=== PATIENT | female | born 1975 | race Caucasian/White ===

== ENCOUNTER 2018-09-21 10:08 | Day surgery (SDC) | payer BC ==
[~2018-09-21 10:08] MED LIST: Ketorolac 30 MG/ML SDV ONE; Midazolam 1 MG/ML 2 ML SDV ONE; Ondansetron 4 MG/2 ML SDV ONE; Propofol 200 MG/20 ML SDV ONE; Rocuronium 50 MG/5 ML Vial ONE; ceFAZolin 1 GM Vial ONE; fentaNYL 100 MCG/2 ML SDV ONE
--- NOTE | 2018-09-21 10:27 | PCM.PREANE ---
Preanesthetic Assessment - Anesthesia/Transfusion/Family Hx Anesthesia History: Prior Anesthesia Without Reaction Family History of Anesthesia Reaction: No Transfusion History: Prior Transfusion Without Reaction Intubation History: Unknown - Review of Systems General: No Symptoms Pulmonary: No Symptoms Cardiovascular: No Symptoms Gastrointestinal: No Symptoms Neurological: No Symptoms Other: Reports: None - Physical Assessment NPO Status Date: 09/20/18 NPO Status Time: 10:00 Height: 1.7 m Weight: 81.647 kg ASA Class: 2 Mental Status: Alert & Oriented x3 Airway Class: Mallampati = 1 Dentition: Reports: Normal Dentition ROM/Head Extension: Full Lungs: Clear to Auscultation, Normal Respiratory Effort Cardiovascular: Regular Rate, Regular Rhythm, No Murmurs - Lab Values: Laboratory Last Values WBC 7.88 K/mm3 (3.98-10.04) 09/16/18 13:51 RBC 4.60 M/mm3 (3.98-5.22) 09/16/18 13:51 Hgb 12.6 gm/L (11.2-15.7) 09/16/18 13:51 Hct 39.1 % (34.1-44.9) 09/16/18 13:51 MCV 85.0 fl (79.4-94.8) 09/16/18 13:51 MCH 27.4 pg (25.6-32.2) 09/16/18 13:51 MCHC 32.2 g/dl (32.2-35.5) 09/16/18 13:51 RDW Std Deviation 42.7 fL (36.4-46.3) 09/16/18 13:51 Plt Count 298 K/mm3 (182-369) 09/16/18 13:51 MPV 9.3 fl (9.4-12.3) L 09/16/18 13:51 Neut % (Auto) 60.2 % (34.0-71.1) 09/16/18 13:51 Lymph % (Auto) 29.9 % (19.3-51.7) 09/16/18 13:51 [place] % (Auto) 7.9 % (4.7-12.5) 09/16/18 13:51 Eos % (Auto) 1.6 (0.7-5.8) 09/16/18 13:51 Baso % (Auto) 0.3 % (0.1-1.2) 09/16/18 13:51 Neut # (Auto) 4.74 K/mm3 (1.56-6.13) 09/16/18 13:51 Lymph # (Auto) 2.36 K/mm3 (1.18-3.74) 09/16/18 13:51 [place] # (Auto) 0.62 K/mm3 (0.24-0.36) H 09/16/18 13:51 Eos # (Auto) 0.13 K/mm3 (0.04-0.36) 09/16/18 13:51 Baso # (Auto) 0.02 K/mm3 (0.01-0.08) 09/16/18 13:51 Creatinine 0.9 mg/dL (0.55-1.02) 09/16/18 13:51 Est Cr Clr Drug Dosing TNP 09/16/18 13:51 Estimated GFR (MDRD) > 60 mL/min (>60) 09/16/18 13:51 Urine Color Yellow (Yellow) 09/16/18 13:51 Urine Appearance Clear (Clear) 09/16/18 13:51 Urine pH 7.0 (5.0-8.0) 09/16/18 13:51 Ur Specific [place] O 1.015 (1.005-1.030) 09/16/18 13:51 Urine Protein Negative (Negative) 09/16/18 13:51 Urine Glucose (UA) Negative (Negative) 09/16/18 13:51 Urine Ketones Negative (Negative) 09/16/18 13:51 Urine Occult Blood 1+ (Negative) H 09/16/18 13:51 Urine Nitrite Negative (Negative) 09/16/18 13:51 Urine Bilirubin Negative (Negative) 09/16/18 13:51 Urine Urobilinogen 0.2 (0.2-1.0) 09/16/18 13:51 Ur Leukocyte Esterase Negative (Negative) 09/16/18 13:51 Urine RBC 0-5 /hpf (0-5) 09/16/18 13:51 Urine WBC 0-5 /hpf (0-5) 09/16/18 13:51 Ur Squamous Epith Cells 0-5 /hpf (0-5) 09/16/18 13:51 Urine Bacteria Occasional /hpf (FEW) 09/16/18 13:51 Urine Mucus Not seen /hpf (FEW) 09/16/18 13:51 Blood Type O POSITIVE 09/16/18 13:51 Gel Antibody Screen Negative 09/16/18 13:51 - Allergies Allergies/Adverse Reactions: Allergies Allergy/AdvReac Type Severity Reaction Status Date / Time No Known Allergies Allergy Verified 09/17/18 09:21 - Anesthesia Plan Pre-Op Medication Ordered: None - Acknowledgements Anesthesia Type Planned: General Anesthesia Pt an Appropriate Candidate for the Planned Anesthesia: Yes Alternatives and Risks of Anesthesia Discussed w Pt/Guardian: Yes Pt/Guardian Understands and Agrees with Anesthesia Plan: Yes PreAnesthesia Questionnaire Cardiovascular History: Reports: Other (See Below) Other Cardiovascular History: atypical chest pain Respiratory History: Reports: None Gastrointestinal History: Reports: Other (See Below) Other Gastrointestinal History: blood in stool, colonoscopy Genitourinary History: Reports: None DROP PRESS HAND History: Reports: Other (See Below) Other OB/BYN History: left ovarian cyst, dysmenorrhea, pelvic pain, tubal Neurological History: Reports: None Psychiatric History: Reports: Anxiety Endocrine/Metabolic History: Reports: None Hematologic History: Reports: Anemia, Iron Deficiency Immunologic History: Reports: None Oncologic (Cancer) History: Reports: None Dermatologic History: Reports: None - Past Surgical History Head Surgeries/Procedures: Reports: None HEENT Surgical History: Reports: Tonsillectomy Cardiovascular Surgical History: Reports: None Respiratory Surgical History: Reports: None GI Surgical History: Reports: None Female Surgical History: Reports: Section Male Surgical History: Reports: None Endocrine Surgical History: Reports: None Neurological Surgical History: Reports: None Musculoskeletal Surgical History: Reports: Other (See Below) Other Musculoskeletal Surgeries/Procedures:: right femur fracture with repair and hardware, right foot surgery with hardware Oncologic Surgical History: Reports: None Dermatological Surgical History: Reports: None - SUBSTANCE USE Smoking Status *Q: Former Smoker Recreational Drug Use History: No - HOME MEDS Home Medications: Home Meds Doxylamine Succinate [Sleep Aid] 25 mg PO BEDTIME 09/17/18 [History] Iron,Carbonyl/Ascorbic Acid [Vitron-C Tablet] 1 tab PO DAILY 09/17/18 [History] Multivitamin [Daily Multiple Vitamin] 1 tab PO DAILY 09/17/18 [History] - CURRENT (IN HOUSE) MEDS Current Meds: Current Medications Discontinued Medications Cefazolin Sodium (Ancef) Confirm Administered Dose 1 gm .ROUTE .STK-MED ONE Stop: 09/21/18 09:47 Cefazolin Sodium (Ancef) Confirm Administered Dose 1 gm .ROUTE .STK-MED ONE Stop: 09/21/18 09:47 Fentanyl (Sublimaze) Confirm Administered Dose 100 mcg .ROUTE .STK-MED ONE Stop: 09/21/18 09:43 Fentanyl (Sublimaze) Confirm Administered Dose 100 mcg .ROUTE .STK-MED ONE Stop: 09/21/18 09:48 Ketorolac Tromethamine (Toradol) Confirm Administered Dose 30 mg .ROUTE .STK- MED ONE Stop: 09/21/18 09:43 Midazolam HCl (Versed 1 Mg/Ml) Confirm Administered Dose 2 mg .ROUTE .STK-MED ONE Stop: 09/21/18 09:42 Ondansetron HCl (Zofran) Confirm Administered Dose 4 mg .ROUTE .STK-MED ONE Stop: 09/21/18 09:43 Propofol (Diprivan 20 Ml) Confirm Administered Dose 200 mg .ROUTE .STK-MED ONE Stop: 09/21/18 09:40 Rocuronium [place] (Zemuron) Confirm Administered Dose 50 mg .ROUTE .STK-MED ONE Stop: 09/21/18 09:43
[2018-09-21] MEDS ORDERED: Sodium Chloride 0.9% 10 ML Syringe FLUSH PRN (10:49)
[2018-09-21] MEDS ORDERED: Lidocaine 1%/Sod Bicarbonate in NS 8.4% 1 ML Syringe IDERM PRN (10:49)
[2018-09-21] MEDS ORDERED: Lactated Ringers 1,000 ML IV SCH (11:00)
[2018-09-21] MEDS ORDERED: HYDROmorphone 0.5 MG/0.5 ML Syringe ONE ×2 (12:20)
[2018-09-21] MEDS: Bupivacaine 0.5% 30 ML SDV ONE ×2 (12:29→12:47)
[2018-09-21] MEDS ORDERED: Ondansetron 4 MG/2 ML SDV ONE (12:33)
[2018-09-21] MEDS ORDERED: Dexamethasone 4 MG/ML 5 ML MDV ONE (12:35)
[2018-09-21] MEDS: Lidocaine 1% with EPINEPHrine 1:100,000 20 ML MDV ONE ×2 (12:47→13:00)
[2018-09-21] MEDS: Sodium Chloride 0.9% 50 ML SDV ONE ×2 (12:47→13:00)
[2018-09-21] MEDS ORDERED: Neostigmine Methylsulfate 1 MG/ML 5 ML Syringe ONE (13:35)
[2018-09-21] MEDS ORDERED: Ondansetron 4 MG/2 ML SDV IVPUSH PRN (13:43)
[2018-09-21] MEDS ORDERED: Acetaminophen/oxyCODONE 325-5 MG Tab PO PRN (13:43)
--- NOTE | 2018-09-21 13:51 | PCM.OPNOTE ---
- General Post-Op/Procedure Note Date of Surgery/Procedure: 09/21/18 Operative Procedure(s): Laparoscopically assisted vaginal hysterectomy with bilateral salpingectomy Findings: Uterus is upper limits normal size. Patient status post tubal ligation. Ovaries were functional in appearance. Patient had some omental adhesions to the para umbilical area. Pre Op Diagnosis: 1. Menorrhagia. 2. Dysmenorrhea. 3. 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 Pathology: Uterus and bilateral fallopian tubes in one container. Fluid Replacement, Intraop: 2,000 Output, Urine Amount: 100 EBL in mLs: 200 Drain/Tube Comments:: Indwelling bladder catheter during surgery only. Condition: Good Free Text/Narrative:: Surgeon duration: 67 minutes The patient was taken to the operating room placed in supine position on the operating table. She received 2 g of Ancef preoperatively for infection prophylaxis. She had signed consent previously. After adequate anesthesia patient was placed in a dorsal lithotomy position. It should be noted she had sequential compression stockings in place for DVT prophylaxis. A uterine manipulator was placed as was an latex free indwelling bladder catheter. This was done after adequate prepping and draping. The patient was placed in supine position and four laparoscopic port sites were developed. Marcaine 0.5% approximately 3-5 mL was injected at each site. Verres needle was placed and pneumoperitoneum was achieved with 3 L of CO2. Infraumbilical and 2 lateral port sites were developed. Under laparoscopic guidance the upper portion of the hysterectomy was performed. The fallopian tube was identified. She is status post tubal ligation only the ends still present. Patient had some omental adhesions to the anterior abdominal wall. . Cyst was note left side and a small hydrosalpinx was noted in the distal end of the tube on her right side. d on The round ligament was taken down to the broad ligament. at this time the left side was developed in a similar fashion. Broad ligament was taken down to the area of the uterine vasculature. Uterine vasculature was developed in the usual fashion using the cautery system. Both uterine arteries were identified and developed. Vaginal approach was then undertaken. The patient was placed in the dorsal lithotomy position and a weighted speculum was placed in the vagina. The cervix was injected with lidocaine quarter percent with epinephrine 20 mL total. A full circumference incision was made through the epithelium around the cervix. Posterior cul-de-sac was entered without problems. The left uterosacral ligament and then the right uterosacral were taken down using the Enseal vessel closure system. The cardinal ligament and what remained of the uterine vascular vessels and cervical branches of the vessels were managed with the Enseal vessel closure system on each side. Anterior cul-de-sac was then entered and the remaining portion of broad ligament on the right side and a small portion of broad ligament remaining on the left side were then developed in the usual fashion. Uterus was then removed. At this point the uterus was completely removed and sent as specimen. The vaginal cuff was then run with a locked running suture of 0 Monocryl from the 2 o'clock position to the 10 o'clock position. The vagina was closed with a running locked suture of 0 Monocryl. Hemostasis was confirmed this time and no bleeding was noted. Laparoscopy was then performed to ensure hemostasis. Pneumoperitoneum was reestablished and the laparoscope was placed. The pelvis was found to be hemostatically intact. There was no evidence of any bowel adhesion to the vaginal cuff area noted. The sleeves were removed under direct visualization and the upper sleeve was removed after reversal of the pneumoperitoneum. Each of these sites were closed with a single interrupted suture of 3-0 Monocryl. They were further approximated with Dermabond skin glue. At this point the patient was awakened from general endotracheal anesthesia. The Steiner catheter had been removed by this time. She is discharged from the operating room in good condition.
--- NOTE | 2018-09-21 13:55 | PCM.POSTAN ---
POST ANESTHESIA ASSESSMENT - MENTAL STATUS Mental Status: Alert - RESPIRATORY Respiratory Status: Respiratory Rate WNL, Airway Patent, O2 Saturation Stable, Supplemental Oxygen - CARDIOVASCULAR CV Status: Pulse Rate WNL, Blood Pressure Stable - GASTROINTESTINAL GI Status: No Symptoms - POST OP HYDRATION Hydration Status: Adequate & Stable
[2018-09-21] MEDS ORDERED: Ondansetron 4 MG/2 ML SDV IVPUSH ONE (14:03)
[2018-09-21] MEDS ORDERED: fentaNYL 100 MCG/2 ML SDV IVPUSH PRN (14:03)
[2018-09-21] MEDS ORDERED: HYDROmorphone 0.5 MG/0.5 ML Syringe IVPUSH SCH (14:15)
[2018-09-21] MEDS ORDERED: Ketorolac 30 MG/ML SDV IVPUSH SCH (16:00)
[2018-09-21] MEDS ORDERED: Ibuprofen 600 MG Tab PO PRN (22:00)
== END 2018-09-21 15:48 | disposition home or self-care (01) ==
LOC: JD.SDS 10:08
PROVIDERS: ATTEND Obstetrics & Gynecology
DX: N85.00 Endometrial hyperplasia, unspecified (principal); N72 Inflammatory disease of cervix uteri; N94.89 Other specified conditions associated with female genital organs and menstrual cycle; I86.2 Pelvic varices; N83.8 Other noninflammatory disorders of ovary, fallopian tube and broad ligament; D50.9 Iron deficiency anemia, unspecified; Z87.891 Personal history of nicotine dependence; Z79.899 Other long term (current) drug therapy
CPT/HCPCS: 36415; 58552; 81001; 81025; 82565; 85025; 86850; 86900; 86901; A9270; J0690; J1100; J1170; J1885; J2250; J2405; J2704; J2710; J3010; J3490; J7120; 00944

== ENCOUNTER 2021-05-14 08:18 | Day surgery (SDC) | payer BC ==
[~2021-05-14 08:18] MED LIST changes: -Ketorolac 30 MG/ML SDV ONE; +Lactated Ringers 1,000 ML IV SCH; +Lidocaine 1%/Sod Bicarbonate in NS 8.4% 1 ML Syringe IDERM PRN; -Midazolam 1 MG/ML 2 ML SDV ONE; -Ondansetron 4 MG/2 ML SDV ONE; -Propofol 200 MG/20 ML SDV ONE; -Rocuronium 50 MG/5 ML Vial ONE; +Sodium Chloride 0.9% 10 ML Syringe FLUSH SCH; -ceFAZolin 1 GM Vial ONE; -fentaNYL 100 MCG/2 ML SDV ONE
[2021-05-14] MEDS ORDERED: Lidocaine 1% with EPINEPHrine 1:100,000 20 ML MDV ONE (09:04)
[2021-05-14] MEDS ORDERED: Bupivacaine 0.5% 30 ML SDV ONE (09:04)
== END 2021-05-14 10:26 | disposition home or self-care (01) ==
LOC: JD.SDS 08:18
PROVIDERS: ATTEND Surgery
DX: D17.1 Benign lipomatous neoplasm of skin and subcutaneous tissue of trunk (principal); Z79.899 Other long term (current) drug therapy; Z98.890 Other specified postprocedural states; Z87.891 Personal history of nicotine dependence
CPT/HCPCS: 21931; J3490